=== PATIENT | male | born 1995 | race Caucasian/White ===

== ENCOUNTER 2016-06-16 17:06 | Emergency (ER) | payer OTHER ==
[~2016-06-16] VITALS: Ht 172.7 cm; Wt 72.5 kg
[2016-06-16 17:09] VITALS: BP 137/78; PULSE 82; RESP 16; TEMP 98.2; O2SAT 100
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
[2016-06-16 19:33] VITALS: BP 130/75; PULSE 80; RESP 16; O2SAT 98
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
[2016-06-16] MEDS ORDERED: NAPR500 PO (20:22)
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
[2016-06-16] MEDS ORDERED: NAPROXEN 500 MG TAB PO ONE (20:30)
== END 2016-06-16 21:16 | disposition home or self-care (01) ==
LOC: NEPC 17:06
DX: M54.9 Dorsalgia, unspecified (principal); R51 Headache; R10.9 Unspecified abdominal pain; S06.9X1A Unspecified intracranial injury with loss of consciousness of 30 minutes or less, initial encounter; S60.811A Abrasion of right wrist, initial encounter; S00.81XA Abrasion of other part of head, initial encounter; S00.01XA Abrasion of scalp, initial encounter; V43.52XA Car driver injured in collision with other type car in traffic accident, initial encounter
CPT/HCPCS: 70450; 72125; 99284; L0150